=== PATIENT | female | born 1945 | race Hispanic/Latino ===

== ENCOUNTER 2016-09-04 16:23 | Inpatient (IN) | payer MEDICARE, OTHER ==
[2016-09-04 16:24] VITALS: BMI 30.2
[2016-09-04 18:30] LABS: BASO # 0.1 K/uL (0.0-0.2); BASO % 0.6 % (0.0-2.0); EOS # 0.2 K/uL (0.0-0.7); EOS % 1.4 % (0.0-4.0); HEMATOCRIT 36.1 % (34.0-47.0); LYMPH % 16.8 % (20.0-40.0); MEAN CELL VOLUME 88.2 fl (81.0-99.0); MEAN CORPUSCULAR HEMOGLOBIN 28.5 pg (27.0-31.0); MEAN CORPUSCULAR HGB CONC 32.3 g/dL (33.0-37.0); MEAN PLATELET VOLUME 8.1 fl (7.2-11.7); MONO % 8.6 % (0.0-10.0); NEUT # 8.6 K/uL (1.8-7.0); NEUT % 72.6 % (50.0-75.0); RED CELL DISTRIBUTION WIDTH 16.3 % (11.5-14.5); WHITE BLOOD COUNT 11.9 K/uL (4.8-10.8)
[2016-09-04 18:39] LABS: ALB/GLOB RATIO 1.3 (1.0-2.1); ALKALINE PHOSPHATASE 135 U/L (38-126); ALT/SGPT 46 U/L (9-52); AST/SGOT 56 U/L (14-36); BILIRUBIN,TOTAL 0.9 mg/dl (0.2-1.3); BLOOD UREA NITROGEN 20 mg/dl (7-17); CARBON DIOXIDE 22 mmol/L (22-30); CHLORIDE 106 mmol/L (98-107); GFR AFRICAN-AMERICAN > 60; GLUCOSE,RANDOM 84 mg/dL (65-105); SODIUM 144 mmol/l (132-148); TOTAL PROTEIN 7.8 G/DL (6.3-8.2)
[2016-09-04 18:40] LABS: PARTIAL THROMBOPLASTIN TIME 23.8 SECONDS (23.3-32.5)
[2016-09-04 18:41] LABS: POTASSIUM 4.1 MMOL/L (3.6-5.0)
--- NOTE | 2016-09-04 18:54 | CT ---
PROCEDURE: CT HEAD WITHOUT CONTRAST. HISTORY: syncope COMPARISON: Noncontrast head CT performed 11/02/13 TECHNIQUE: Axial computed tomography images were obtained through the head/brain without intravenous contrast. Radiation dose: Total exam DLP = 777.57 mGy-cm. This CT exam was performed using one or more of the following dose reduction techniques: Automated exposure control, adjustment of the mA and/or kV according to patient size, and/or use of iterative reconstruction technique. FINDINGS: HEMORRHAGE: No intracranial hemorrhage. BRAIN: Mild diffuse atrophy with prominence of the ventricles and sulci noted. No mass effect or edema. Mild scattered white matter hypodensities, which are nonspecific, but often seen with chronic microvascular ischemic disease. Please note that MRI with diffusion imaging is more sensitive in the detection of acute ischemic event. VENTRICLES: No hydrocephalus. CALVARIUM: Unremarkable. PARANASAL SINUSES: Unremarkable as visualized. No significant inflammatory changes. MASTOID AIR CELLS: The right mastoid air cells appear clear. Postoperative changes of the left mastoid air cells. OTHER FINDINGS: None. IMPRESSION: No acute intracranial pathology identified. Incidental findings as above.
[2016-09-04 19:16] LABS: RBC URINE 8 /hpf (0-3); URINE BACTERIA RARE (<OCC); URINE BILIRUBIN NEGATIVE (NEGATIVE); URINE BLOOD SMALL (NEGATIVE); URINE COLOR YELLOW (YELLOW); URINE GLUCOSE (UA) NEG (Normal); URINE KETONE TRACE mg/dL (NEGATIVE); URINE LEUKOCYTE ESTERASE LARGE Leu/uL (Negative); URINE PROTEIN 30 mg/dL (NEGATIVE); URINE UROBILINOGEN 0.2-1.0 mg/dL (0.2-1.0); WBC URINE 6 /hpf (0-5)
--- NOTE | 2016-09-04 20:05 | ED PDOC ---
Syncope/Near Syncope/Dizzyness Time Seen by Provider: 09/04/16 17:21 Chief Complaint (Nursing): Dizziness/Lightheaded Chief Complaint (Provider): Syncope History Per: Patient History/Exam Limitations: no limitations Onset/Duration Of Symptoms: Sudden Onset Past Medical History Vital Signs: Last Vital Signs Temp 97.0 F L 09/04/16 16:48 Pulse 78 09/04/16 16:48 Resp 16 09/04/16 16:48 BP 152/109 H 09/04/16 16:48 Pulse Ox 99 09/04/16 16:48 - Medical History PMH: Anxiety, Asthma, COPD, Depression, Diabetes, Diverticulitis, Gastritis, HTN , Pulmonary Embolism, Schizophrenia - Surgical History Surgical History: Appendectomy, Cholecystectomy - Family History Family History: States: Unknown Family Hx - Immunization History Hx Tetanus Toxoid Vaccination: Yes Hx Influenza Vaccination: Yes Hx Pneumococcal Vaccination: Yes - Home Medications Home Medications: Ambulatory Orders Medication Instructions Recorded Docusate [Colace] 100 mg PO BID PRN #0 cap 04/21/16 Enoxaparin [Lovenox] 40 mg SC DAILY #0 syr 04/21/16 Pantoprazole [Protonix EC Tab] 40 mg PO DAILY #0 ect 04/21/16 amLODIPine [Norvasc] 5 mg PO DAILY #0 tab 04/21/16 clonazePAM [Klonopin] 0.5 mg PO BID #0 tab 04/21/16 oxyCODONE/Acetaminophen [Percocet 1 tab PO Q4 PRN #0 tab 04/21/16 5/325 mg Tab] - Allergies Allergies/Adverse Reactions: Allergies Allergy/AdvReac Type Severity Reaction Status Date / Time Penicillins Allergy RASH Verified 04/18/16 07:21 - Laboratory Results Result Diagrams: 09/04/16 17:50 09/04/16 17:50 - ECG O2 Sat by Pulse Oximetry: 99 Medical Decision Making Medical Decision Making: Discussed with Dr. Ross for admission. Disposition - Clinical Impression Clinical Impression: Syncope - Patient ED Disposition Is Patient to be Admitted: Yes - Disposition Disposition Time: 20:05 Condition: STABLE - Pt Status Changed To: Hospital Disposition Of: Observation - Admit Certification Admit to Inpatient:: Telemetry - POA Present On Arrival: None
--- NOTE | 2016-09-04 20:09 | CP.PCM.HP ---
History of Present Illness - History of Present Illness History of Present Illness: 70 yo female with history of HTN, DM2, COPD, Schizophrenia, Depression and PE in the past passed out while walking back home from the pharmacy. She claimed she felt dizzy and nauseated prior to losing consciousness. She denied SOB or chest pain. Present on Admission - Present on Admission Any Indicators Present on Admission: Yes History of DVT/PE: Yes History of Uncontrolled Diabetes: No Urinary Catheter: No Decubitus Ulcer Present: No Review of Systems - Review of Systems All systems: reviewed and no additional remarkable complaints except (aside from those mentioned above, 12 point system review were negative by me) - Hematologic/Lymphatic Additional comments: aside from those mentioned above, 12 point system review were negative by me Past Patient History - Past Social History Smoking Status: Never Smoked Alcohol: None Drugs: Denies - CARDIAC Hx Hypertension: Yes - PULMONARY Hx Asthma: Yes Hx Chronic Obstructive Pulmonary Disease (COPD): Yes Hx Pulmonary Embolism: Yes - NEUROLOGICAL Hx Neurological Disorder: No - HEENT Hx HEENT Problems: No - RENAL Hx Chronic Kidney Disease: No - ENDOCRINE/METABOLIC Hx Diabetes Mellitus Type 2: Yes - HEMATOLOGICAL/ONCOLOGICAL Hx Blood Disorders: No - INTEGUMENTARY Hx Dermatological Problems: No - MUSCULOSKELETAL/RHEUMATOLOGICAL Hx Falls: Yes - GASTROINTESTINAL Hx Diverticulitis: Yes Hx Gastritis: Yes - GENITOURINARY/GYNECOLOGICAL Hx Genitourinary Disorders: No - PSYCHIATRIC Hx Anxiety: Yes Hx Depression: Yes Hx Schizophrenia: Yes - SURGICAL HISTORY Hx Appendectomy: Yes Hx Cholecystectomy: Yes - ANESTHESIA Hx Anesthesia: Yes Hx Anesthesia Reactions: No Meds Allergies/Adverse Reactions: Allergies Allergy/AdvReac Type Severity Reaction Status Date / Time Penicillins Allergy RASH Verified 04/18/16 07:21 Physical Exam - Constitutional Appears: No Acute Distress - Head Exam Additional comments: contussion abrasion left infra-orbital; swollen with small abrasion on left side of the nose - Eye Exam Pupil Exam: PERRL - ENT Exam ENT Exam: Mucous Membranes Moist - Neck Exam Neck exam: Negative for: Meningismus - Respiratory Exam Respiratory Exam: absent: Rhonchi, Wheezes, Respiratory Distress - Cardiovascular Exam Cardiovascular Exam: REGULAR RHYTHM, +S1, +S2 - GI/Abdominal Exam GI & Abdominal Exam: Soft. absent: Tenderness - Rectal Exam Rectal Exam: Deferred - Neurological Exam Neurological exam: Alert, Oriented x3 - Psychiatric Exam Psychiatric exam: Normal Affect, Normal Mood - Skin Skin Exam: Dry, Intact Results - Vital Signs Recent Vital Signs: Last Vital Signs Temp 97.0 F L 09/04/16 16:48 Pulse 78 09/04/16 16:48 Resp 16 09/04/16 16:48 BP 152/109 H 09/04/16 16:48 Pulse Ox 99 09/04/16 20:06 - Labs Result Diagrams: 09/04/16 17:50 09/04/16 17:50 Labs: Laboratory Results - last 24 hr 09/04/16 09/04/16 17:50 18:20 WBC 11.9 H RBC 4.09 Hgb 11.7 L Hct 36.1 MCV 88.2 MCH 28.5 MCHC 32.3 L RDW 16.3 H Plt Count 252 MPV 8.1 Neut % (Auto) 72.6 Lymph % (Auto) 16.8 L [place] % (Auto) 8.6 Eos % (Auto) 1.4 Baso % (Auto) 0.6 Neut # 8.6 H Lymph # 2.0 Dale # 1.0 H Eos # 0.2 Baso # 0.1 PT 10.1 INR 0.97 APTT 23.8 Sodium 144 Potassium 4.1 Chloride 106 Carbon Dioxide 22 Anion Gap 20 BUN 20 H Creatinine 0.8 Est GFR ( Amer) > 60 Est GFR (Non-Af Amer) > 60 Random Glucose 84 Calcium 9.0 Total Bilirubin 0.9 AST 56 H D ALT 46 Alkaline Phosphatase 135 H D Troponin I < 0.0120 Total Protein 7.8 Albumin 4.5 Globulin 3.3 Albumin/Globulin Ratio 1.3 Urine Color Yellow Urine Clarity Slighty-cloudy Urine pH 5.0 Ur Specific [place] 1.026 Urine Protein 30 Urine Glucose (UA) Neg Urine Ketones Trace Urine Blood Small Urine Nitrate Negative Urine Bilirubin Negative Urine Urobilinogen 0.2-1.0 Ur Leukocyte Esterase Large Urine RBC (Auto) 8 H Urine Microscopic WBC 6 H Ur Squamous Epith Cells < 1 Urine Bacteria Rare Assessment & Plan (1) Syncope Status: Acute Comment: place on observation in telemetry. serial Troponin and EKG. ECHO. Carotid doppler. Neuro consult (patient admitted history of multiple falls). refer to PT
[2016-09-04] MEDS ORDERED: Oxycodone/Acetaminophen 5/325 mg Tab PO PRN (23:36)
[2016-09-05 07:11] LABS: BASO # 0.1 K/uL (0.0-0.2); EOS # 0.2 K/uL (0.0-0.7); EOS % 1.9 % (0.0-4.0); HEMATOCRIT 35.3 % (34.0-47.0); LYMPH # 2.1 K/uL (1.0-4.3); LYMPH % 21.3 % (20.0-40.0); MEAN CELL VOLUME 87.8 fl (81.0-99.0); MEAN CORPUSCULAR HEMOGLOBIN 28.4 pg (27.0-31.0); MEAN CORPUSCULAR HGB CONC 32.3 g/dL (33.0-37.0); MEAN PLATELET VOLUME 7.8 fl (7.2-11.7); MONO # 0.9 K/uL (0.0-0.8); MONO % 9.3 % (0.0-10.0); NEUT # 6.6 K/uL (1.8-7.0); NEUT % 66.5 % (50.0-75.0)
[2016-09-05 07:19] LABS: BLOOD UREA NITROGEN 20 mg/dl (7-17); CALCIUM 8.9 mg/dL (8.4-10.2); CARBON DIOXIDE 25 mmol/L (22-30); CHLORIDE 107 mmol/L (98-107); GFR AFRICAN-AMERICAN > 60; GLUCOSE,RANDOM 102 mg/dL (65-105); POTASSIUM 3.5 MMOL/L (3.6-5.0); SODIUM 146 mmol/l (132-148)
[2016-09-05] MEDS ORDERED: Potassium Chloride 20 mEq ER Tab PO ONE (07:55)
[2016-09-05] MEDS: Pantoprazole 40 mg EC Tab PO SCH (08:56)
--- NOTE | 2016-09-05 09:58 | RAD ---
HISTORY: syncope COMPARISON: 04/07/2016 FINDINGS: LUNGS: The lungs are well inflated and clear. PLEURA: No significant pleural effusion identified, no pneumothorax apparent. CARDIOVASCULAR: Normal. OSSEOUS STRUCTURES: No significant abnormalities. Status post ACDF in the lower cervical spine. VISUALIZED UPPER ABDOMEN: Normal. OTHER FINDINGS: None. IMPRESSION: No active pulmonary disease.
--- NOTE | 2016-09-05 11:37 | CARD ---
APPROVED REPORT EXAM: Two-dimensional and M-mode echocardiogram with Doppler and color Doppler. Other Information Quality : AverageRhythm : NSR INDICATION Syncope 2D DIMENSIONS IVSd0.94 (0.7-1.1cm)LVDd3.13 (3.9-5.9cm) LVOT Diameter2.08 (1.8-2.4cm)PWd0.98 (0.7-1.1cm) IVSs1.44 (0.8-1.2cm)LVDs2.70 (2.5-4.0cm) FS (%) 13.8 %PWs1.19 (0.8-1.2cm) M-Mode DIMENSIONS Left Atrium (MM)3.67 (2.5-4.0cm)Aortic Root2.91 (2.2-3.7cm) Aortic Cusp Exc.1.85 (1.5-2.0cm) Mitral Valve MV E Mvhvfqec96.2cm/sMV DECEL [id number] A Mewcbhzs36.2cm/s MV HLE15yoD/A ratio1.0MVA (PHT)3.77cm2 TDI E/Lateral E'0.0E/Medial E'0.0 Pulmonary Valve PV Peak Zcxfrbye02.4cm/s LEFT VENTRICLE The left ventricle is normal size. There is normal left ventricular wall thickness. The left ventricular function is normal. The left ventricular ejection fraction is - 75%. There is normal LV segmental wall motion. Transmitral Doppler flow pattern is Grade I-abnormal relaxation pattern. No left ventricle thrombus noted on this study. There is no ventricular septal defect visualized. There is no left ventricular aneurysm. There is no mass noted in the left ventricle. RIGHT VENTRICLE The right ventricle is normal size. There is normal right ventricular wall thickness. The right ventricular systolic function is normal. ATRIA The left atrium size is normal. There is no thrombus suspected in the left atrium. The right atrium size is normal. The interatrial septum is intact with no evidence for an atrial septal defect. AORTIC VALVE The aortic valve is normal in structure and function. There is very trivial aortic regurgitation. There is no aortic valvular stenosis. MITRAL VALVE The mitral valve is normal in structure and function. There is no evidence of mitral valve prolapse. There is no mitral valve stenosis. Mitral regurgitation is trace. TRICUSPID VALVE The tricuspid valve is normal in structure and function. There is no tricuspid valve regurgitation noted. There is no tricuspid valve prolapse or vegetation. There is no tricuspid valve stenosis. PULMONIC VALVE The pulmonary valve is normal in structure and function. There is trace pulmonic valvular regurgitation. GREAT VESSELS The aortic root is normal in size. The IVC was not visualized. PERICARDIAL EFFUSION There is a very small anterior echo free space. There is no pleural effusion. <Conclusion> The left ventricle is normal in size and wall thickness. The left ventricular function is normal. The left ventricular ejection fraction is - 75%. The left atrium, right ventricle and right atrium are normal in size. The mitral, aortic and tricuspid valves are normal. There is trace mitral regurgitation and trivial aortic regurgitation.
--- NOTE | 2016-09-05 15:18 | US ---
PROCEDURE: Duplex ultrasound of the carotid and vertebral arteries. HISTORY: syncope COMPARISON: None available. TECHNIQUE: Grayscale and duplex Doppler evaluation of the cervical carotid and vertebral arteries were performed. The common carotid, carotid bifurcations and cervical ICA and proximal ECA were evaluated. The vertebral arteries were evaluated for gross patency and direction. FINDINGS: RIGHT CAROTID ARTERIES: Common Carotid Artery: Normal. Maximal flow velocity of 62.5 cm/s. Carotid Bifurcation: Normal. Internal Carotid Artery:Normal. Maximal flow velocity of 58.1 cm/s. External Carotid Artery (proximal branches): Normal. Maximal flow velocity of 69.1 cm/s. ICA/CCA Ratio: 1.1 LEFT CAROTID ARTERIES: Common Carotid Artery: Normal. Maximal flow velocity of 79.0 cm/s. Carotid Bifurcation: There are calcified atherosclerotic plaques. Normal flow. Internal Carotid Artery:Normal. Maximal flow velocity of 58.3 cm/s. External Carotid Artery (proximal branches): Normal. Maximal flow velocity of 61.1 cm/s. ICA/CCA Ratio: 1.4 VERTEBRAL ARTERIES: Right Vertebral Artery: Patent. Antegrade flow. Left Vertebral Artery: Patent. Antegrade flow. OTHER FINDINGS: None. IMPRESSION: No evidence of hemodynamically significant stenosis.
--- NOTE | 2016-09-05 18:03 | CP.PCM.PN ---
Subjective - Date & Time of Evaluation Date of Evaluation: 09/05/16 Time of Evaluation: 11:00 - Subjective Subjective: Pt seen and examined denies headace, no dizziness no orthostas on VS monitoring denies CP no SOB no abd pain able to ambulate- denies hip pain, no back pain, no UE pain Objective - Vital Signs/Intake and Output Vital Signs (last 24 hours): Temp Pulse Resp BP Pulse Ox 97.9 F 72 18 111/73 97 09/05/16 17:00 09/05/16 17:00 09/05/16 17:00 09/05/16 17:00 09/05/16 17:00 - Medications Medications: Current Medications Acetaminophen (Tylenol 325mg Tab) 650 mg PO Q6 PRN PRN Reason: Pain, Mild (1-3) Amlodipine Besylate (Norvasc) 5 mg PO DAILY [facility] Last Admin: 09/05/16 08:56 Dose: 5 mg Clonazepam (Klonopin) 0.5 mg PO BID [facility] Last Admin: 09/05/16 08:56 Dose: 0.5 mg Oxycodone/Acetaminophen (Percocet 5/325 Mg Tab) 1 tab PO Q4 PRN PRN Reason: Pain, moderate (4-7) Stop: 09/07/16 23:37 Last Admin: 09/04/16 23:55 Dose: 1 tab Pantoprazole Sodium (Protonix Ec Tab) 40 mg PO DAILY [facility] Last Admin: 09/05/16 08:56 Dose: 40 mg - Labs Labs: 09/05/16 05:55 09/05/16 05:55 PT 10.1 SECONDS (9.6-11.2) 09/04/16 17:50 INR 0.97 (0.92-1.08) 09/04/16 17:50 APTT 23.8 SECONDS (23.3-32.5) 09/04/16 17:50 - Constitutional Appears: No Acute Distress, Older Than Stated Age, Chronically Ill - Head Exam Additional comments: left periorbital abrasion, minimal swelling - ENT Exam ENT Exam: Mucous Membranes Moist, Normal External Ear Exam - Neck Exam Neck Exam: Full ROM. absent: Meningismus - Respiratory Exam Respiratory Exam: NORMAL BREATHING PATTERN. absent: Respiratory Distress - Cardiovascular Exam Cardiovascular Exam: REGULAR RHYTHM, +S1, +S2 - GI/Abdominal Exam GI & Abdominal Exam: Soft, Normal Bowel Sounds. absent: Tenderness - Extremities Exam Extremities Exam: Normal Capillary Refill. absent: Calf Tenderness, Pedal Edema - Back Exam Back Exam: Full ROM. absent: CVA tenderness (L), CVA tenderness (R), paraspinal tenderness, vertebral tenderness - Neurological Exam Neurological Exam: Alert, Awake, CN II-XII Intact, Oriented x3 - Psychiatric Exam Psychiatric exam: Normal Affect, Normal Mood - Skin Skin Exam: Dry, Normal Color, Warm Assessment and Plan (1) Syncope Status: Acute (2) UTI (lower urinary tract infection) Status: Acute (3) Asthma Status: Chronic (4) Schizophrenia Status: Chronic (5) HTN (hypertension) Status: Chronic (6) History of pulmonary embolus (PE) Status: Chronic (7) DVT prophylaxis Status: Acute - Assessment and Plan (Free Text) Assessment: 70 y/o lady with hx of HTN, Schizophremia, VTE (hx of IVC filter), Asthma , was brought in after a syncopal episode. Pt states that she felt dizzy prior to the event and passed out however was able to hold on to something and only sl injured her head. (1) Syncope prob sec to medications Status: Acute unclear what other Psych meds she takes however she is knwon to be on Klonopin and also takes Percocet prn no Ortho statis change in VS CT of head: neg Echo ; normal EF Carotid Sono: no significant stenosis Trop x 3 negative no signs sxs of PE ( no tachy, no resp sxs ) Neurology on consult EKG: normal, no abn rhythm on Tele Physical therapy consult (2) UTI (lower urinary tract infection) Status: Acute very sl WBC, however + leukoest Urine c/s will start PO Levaquin (3) Asthma mild intermitent Status: Chronic prn Albuterol (4) Schizophrenia Status: Chronic pt on Klonopin unlknown other Psych meds SW consulted to have Visiting RN come and eval pt's meds - she is taking correctly (5) HTN (hypertension) Status: Chronic cont Norvasc (6) History of pulmonary embolus (PE) Status: Chronic hx of IVC filter accdg to previous med records (7) DVT prophylaxis Status: Acute Lovenox
--- NOTE | 2016-09-05 18:37 | CP.PCM.CON ---
History of Present Illness - History of Present Illness History of Present Illness: Chief Complaint: Syncope, Dizziness/Lightheadedness History Per: Patient History/Exam Limitations: no limitations Onset/Duration Of Symptoms: Sudden Onset Past Medical History Vital Signs: Last Vital Signs Temp 97.0 F L 09/04/16 16:48 Pulse 78 09/04/16 16:48 Resp 16 09/04/16 16:48 BP 152/109 H 09/04/16 16:48 Pulse Ox 99 09/04/16 16:48 - Medical History PMH: Anxiety, Asthma, COPD, Depression, Diabetes, Diverticulitis, Gastritis, HTN , Pulmonary Embolism, Schizophrenia, H/o Glaucoma, H/O Lumbar Radiculopathy that was operated twice, uses a Quadricane to walk and at times uses a walker. Frequent falling due to back pain, H/O Sleep Apnea but she lost her CPAP Machine. - Surgical History Surgical History: Appendectomy, Cholecystectomy, H/o Left shoulder surgery, h/o surgery for Diverticulosis, h/o 2 Back Surgeries - Family History Family History: States: Unknown Family Hx - Immunization History Hx Tetanus Toxoid Vaccination: Yes Hx Influenza Vaccination: Yes Hx Pneumococcal Vaccination: Yes - Home Medications Home Medications: Ambulatory Orders Medication Instructions Recorded Docusate [Colace] 100 mg PO BID PRN #0 cap 04/21/16 Enoxaparin [Lovenox] 40 mg SC DAILY #0 syr 04/21/16 Pantoprazole [Protonix EC Tab] 40 mg PO DAILY #0 ect 04/21/16 amLODIPine [Norvasc] 5 mg PO DAILY #0 tab 04/21/16 clonazePAM [Klonopin] 0.5 mg PO BID #0 tab 04/21/16 oxyCODONE/Acetaminophen [Percocet 1 tab PO Q4 PRN #0 tab 04/21/16 5/325 mg Tab] - Allergies Allergies/Adverse Reactions: Allergies Allergy/AdvReac Type Severity Reaction Status Date / Time Penicillins Allergy RASH Verified 04/18/16 07:21 Clinical Impression: Syncope IMPRESSION of CT Brain: No acute intracranial pathology identified. Mild scattered white matter hypodensities, which are nonspecific, but often seen with chronic microvascular ischemic disease. Incidental findings as above. IMPRESSION of Carotid Dopplers: No evidence of hemodynamically significant stenosis. IMPRESSION of CXR: No active pulmonary disease. Past Patient History - Past Medical History & Family History Past Medical History?: Yes - Past Social History Smoking Status: Never Smoked Alcohol: None Drugs: Denies - CARDIAC Hx Hypertension: Yes - PULMONARY Hx Asthma: Yes Hx Chronic Obstructive Pulmonary Disease (COPD): Yes Hx Pulmonary Embolism: Yes - NEUROLOGICAL Hx Dizziness: Yes - HEENT Hx HEENT Problems: No - RENAL Hx Chronic Kidney Disease: No - ENDOCRINE/METABOLIC Hx Diabetes Mellitus Type 2: Yes - HEMATOLOGICAL/ONCOLOGICAL Hx Blood Disorders: No - INTEGUMENTARY Hx Dermatological Problems: No - MUSCULOSKELETAL/RHEUMATOLOGICAL Hx Falls: Yes Other/Comment: Left shoulder Sx, 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 - GASTROINTESTINAL Hx Diverticulitis: Yes Hx Gastritis: Yes - GENITOURINARY/GYNECOLOGICAL Hx Genitourinary Disorders: No - PSYCHIATRIC Hx Anxiety: Yes Hx Depression: Yes Hx Schizophrenia: Yes - SURGICAL HISTORY Hx Appendectomy: Yes Hx Cholecystectomy: Yes - ANESTHESIA Hx Anesthesia: Yes Hx Anesthesia Reactions: No Meds Allergies/Adverse Reactions: Allergies Allergy/AdvReac Type Severity Reaction Status Date / Time Penicillins Allergy RASH Verified 04/18/16 07:21 - Medications Medications: Current Medications Acetaminophen (Tylenol 325mg Tab) 650 mg PO Q6 PRN PRN Reason: Pain, Mild (1-3) Amlodipine Besylate (Norvasc) 5 mg PO DAILY [facility] Last Admin: 09/05/16 08:56 Dose: 5 mg Clonazepam (Klonopin) 0.5 mg PO BID [facility] Last Admin: 09/05/16 08:56 Dose: 0.5 mg Enoxaparin Sodium (Lovenox) 40 mg SC DAILY [facility] PRN Reason: Protocol Levofloxacin (Levaquin) 250 mg PO STAT STA Stop: 09/05/16 18:10 Levofloxacin (Levaquin) 250 mg PO DAILY [facility] Oxycodone/Acetaminophen (Percocet 5/325 Mg Tab) 1 tab PO Q4 PRN PRN Reason: Pain, moderate (4-7) Stop: 09/07/16 23:37 Last Admin: 09/04/16 23:55 Dose: 1 tab Pantoprazole Sodium (Protonix Ec Tab) 40 mg PO DAILY [facility] Last Admin: 09/05/16 08:56 Dose: 40 mg Physical Exam - Neurological Exam Additional comments: Bruise around her nose Mental Status: Awake, alert, oriented x 3, normal cognition, normal memoryX 3 Speech is fluent coherent. Cranial nerves II to XII: No deficits Motor: normal Tone normal power. Positive Lasegue test bilaterally Limited left shoulder abduction, raising the shoulder. DTR 0/4 bilaterally Toes are down going Sensory: Glove and stoke diabetic sensory deficit peripherally in bilateral UEs and LEs Cerebellar: Normal FNT The rest is not tested as she cannot stand or walk easily. Stature and Walk: Walks to the bathroom slowly, cruising on the schuster and the funiture. Results - Vital Signs Recent Vital Signs: Last Vital Signs Temp 97.9 F 09/05/16 17:00 Pulse 72 09/05/16 17:00 Resp 18 09/05/16 17:00 BP 111/73 09/05/16 17:00 Pulse Ox 97 09/05/16 17:00 - Labs Result Diagrams: 09/05/16 05:55 09/05/16 05:55 Labs: Laboratory Results - last 24 hr 09/04/16 09/05/16 09/05/16 21:31 01:15 05:20 WBC RBC Hgb Hct MCV MCH MCHC RDW Plt Count MPV Neut % (Auto) Lymph % (Auto) Kay % (Auto) Eos % (Auto) Baso % (Auto) Neut # Lymph # Kay # Eos # Baso # Sodium Potassium Chloride Carbon Dioxide Anion Gap BUN Creatinine Est GFR ( Amer) Est GFR (Non-Af Amer) POC Glucose (mg/dL) 90 111 H Random Glucose Hemoglobin A1c Calcium Troponin I < 0.0120 09/05/16 09/05/16 09/05/16 05:55 10:15 11:05 WBC 10.0 RBC 4.02 Hgb 11.4 L Hct 35.3 MCV 87.8 MCH 28.4 MCHC 32.3 L RDW 16.0 H Plt Count 236 MPV 7.8 Neut % (Auto) 66.5 Lymph % (Auto) 21.3 Kay % (Auto) 9.3 Eos % (Auto) 1.9 Baso % (Auto) 1.0 Neut # 6.6 Lymph # 2.1 Kay # 0.9 H Eos # 0.2 Baso # 0.1 Sodium 146 Potassium 3.5 L Chloride 107 Carbon Dioxide 25 Anion Gap 18 BUN 20 H Creatinine 0.9 Est GFR ( Amer) > 60 Est GFR (Non-Af Amer) > 60 POC Glucose (mg/dL) 110 Random Glucose 102 Hemoglobin A1c 6.0 Calcium 8.9 Troponin I < 0.0120 < 0.0120 09/05/16 15:51 WBC RBC Hgb Hct MCV MCH MCHC RDW Plt Count MPV Neut % (Auto) Lymph % (Auto) Kay % (Auto) Eos % (Auto) Baso % (Auto) Neut # Lymph # Kay # Eos # Baso # Sodium Potassium Chloride Carbon Dioxide Anion Gap BUN Creatinine Est GFR ( Amer) Est GFR (Non-Af Amer) POC Glucose (mg/dL) 146 H Random Glucose Hemoglobin A1c Calcium Troponin I Assessment & Plan (1) Syncope Assessment and Plan: H/O HTN, UTI, COPD, Schizophrenia, Abdominal Pain, Pulmonary Embolism, R/O Cardiac causes of Syncope. She has a nasal bruise. Status: Acute (2) Flu-like symptoms Assessment and Plan: H/O Abdominal Pain, Diarrhea, Possible UTI Status: Acute (3) Vertigo Assessment and Plan: R/O Seizures, R/O Cervical Radiculopathy, R/O Meniere's disease, H/O Anxiety , Sleep Apnea who lost her CPAP, Schizophrenia. Status: Acute (4) Seizures Assessment and Plan: Have to be ruled out Status: Acute (5) TIA (transient ischemic attack) Assessment and Plan: R/O TIA Status: Acute (6) Lumbar radiculopathy Assessment and Plan: Operated twice. Status: Acute (7) Sleep apnea Assessment and Plan: Stopped using her CPAP and feels tired. She needs a sleep study and to have titration for her CPAP Status: Acute
--- NOTE | 2016-09-05 20:09 | CARD ---
APPROVED REPORT EKG Measurement Heart [id number] <Conclusion> Normal sinus rhythm Normal ECG
[2016-09-06 07:25] LABS: THYROID STIMULATING HORMONE 0.87 mIU/ML (0.46-4.68)
[2016-09-06 08:03] VITALS: RESP 18
[2016-09-06] MEDS ORDERED: Enoxaparin 40 mg Syringe SC SCH (09:00)
--- NOTE | 2016-09-06 09:09 | CP.PCM.DIS ---
Provider - Provider Date of Admission: 09/05/16 19:20 Attending physician: Harry Ross MD Primary care physician: Balta Bergman MD Consults: Neurology consult Time Spent in preparation of Discharge (in minutes): 15 Hospital Course - Lab Results Lab Results: Most Recent Lab Values WBC 10.0 K/uL (4.8-10.8) 09/05/16 05:55 RBC 4.02 Mil/uL (3.80-5.20) 09/05/16 05:55 Hgb 11.4 g/dL (12.0-16.0) L 09/05/16 05:55 Hct 35.3 % (34.0-47.0) 09/05/16 05:55 MCV 87.8 fl (81.0-99.0) 09/05/16 05:55 MCH 28.4 pg (27.0-31.0) 09/05/16 05:55 MCHC 32.3 g/dL (33.0-37.0) L 09/05/16 05:55 RDW 16.0 % (11.5-14.5) H 09/05/16 05:55 Plt Count 236 K/uL (130-400) 09/05/16 05:55 MPV 7.8 fl (7.2-11.7) 09/05/16 05:55 Neut % (Auto) 66.5 % (50.0-75.0) 09/05/16 05:55 Lymph % (Auto) 21.3 % (20.0-40.0) 09/05/16 05:55 Polk % (Auto) 9.3 % (0.0-10.0) 09/05/16 05:55 Eos % (Auto) 1.9 % (0.0-4.0) 09/05/16 05:55 Baso % (Auto) 1.0 % (0.0-2.0) 09/05/16 05:55 Neut # 6.6 K/uL (1.8-7.0) 09/05/16 05:55 Lymph # 2.1 K/uL (1.0-4.3) 09/05/16 05:55 Polk # 0.9 K/uL (0.0-0.8) H 09/05/16 05:55 Eos # 0.2 K/uL (0.0-0.7) 09/05/16 05:55 Baso # 0.1 K/uL (0.0-0.2) 09/05/16 05:55 ESR 34 mm/hr (0-30) H 09/06/16 05:00 PT 10.1 SECONDS (9.6-11.2) 09/04/16 17:50 INR 0.97 (0.92-1.08) 09/04/16 17:50 APTT 23.8 SECONDS (23.3-32.5) 09/04/16 17:50 Sodium 146 mmol/l (132-148) 09/05/16 05:55 Potassium 3.5 MMOL/L (3.6-5.0) L 09/05/16 05:55 Chloride 107 mmol/L (98-107) 09/05/16 05:55 Carbon Dioxide 25 mmol/L (22-30) 09/05/16 05:55 Anion Gap 18 (10-20) 09/05/16 05:55 BUN 20 mg/dl (7-17) H 09/05/16 05:55 Creatinine 0.9 mg/dL (0.7-1.2) 09/05/16 05:55 Est GFR ( Amer) > 60 09/05/16 05:55 Est GFR (Non-Af Amer) > 60 09/05/16 05:55 POC Glucose (mg/dL) 117 mg/dL (65-110) H 09/06/16 05:19 Random Glucose 102 mg/dL (65-105) 09/05/16 05:55 Hemoglobin A1c 6.0 % (4.2-6.5) 09/05/16 05:55 Calcium 8.9 mg/dL (8.4-10.2) 09/05/16 05:55 Total Bilirubin 0.9 mg/dl (0.2-1.3) 09/04/16 17:50 AST 56 U/L (14-36) H D 09/04/16 17:50 ALT 46 U/L (9-52) 09/04/16 17:50 Alkaline Phosphatase 135 U/L (38-126) H D 09/04/16 17:50 Troponin I < 0.0120 ng/mL (0.00-0.120) 09/05/16 10:15 Total Protein 7.8 G/DL (6.3-8.2) 09/04/16 17:50 Albumin 4.5 g/dL (3.5-5.0) 09/04/16 17:50 Globulin 3.3 gm/dL (2.2-3.9) 09/04/16 17:50 Albumin/Globulin Ratio 1.3 (1.0-2.1) 09/04/16 17:50 Triglycerides 144 mg/DL (0-149) 09/06/16 05:00 Cholesterol 173 mg/dL (0-199) 09/06/16 05:00 LDL Cholesterol Direct 79 mg/dL (0-129) 09/06/16 05:00 HDL Cholesterol 63 MG/DL (30-70) 09/06/16 05:00 TSH 3rd Generation 0.87 mIU/ML (0.46-4.68) 09/06/16 05:00 Urine Color Yellow (YELLOW) 09/04/16 18:20 Urine Clarity Slighty-cloudy (Clear) 09/04/16 18:20 Urine pH 5.0 (5.0-8.0) 09/04/16 18:20 Ur Specific [place] 1.026 (1.003-1.030) 09/04/16 18:20 Urine Protein 30 mg/dL (NEGATIVE) 09/04/16 18:20 Urine Glucose (UA) Neg mg/dL (Normal) 09/04/16 18:20 Urine Ketones Trace mg/dL (NEGATIVE) 09/04/16 18:20 Urine Blood Small (NEGATIVE) 09/04/16 18:20 Urine Nitrate Negative (NEGATIVE) 09/04/16 18:20 Urine Bilirubin Negative (NEGATIVE) 09/04/16 18:20 Urine Urobilinogen 0.2-1.0 mg/dL (0.2-1.0) 09/04/16 18:20 Ur Leukocyte Esterase Large Ally/uL (Negative) 09/04/16 18:20 Urine RBC (Auto) 8 /hpf (0-3) H 09/04/16 18:20 Urine Microscopic WBC 6 /hpf (0-5) H 09/04/16 18:20 Ur Squamous Epith Cells < 1 /hpf (0-5) 04/03/17 18:20 Urine Bacteria Rare (<OCC) 09/04/16 18:20 - Hospital Course Hospital Course: 70 y/o lady with hx of HTN, Schizophremia, VTE (hx of IVC filter), Asthma , was brought in after a syncopal episode. Pt states that she felt dizzy prior to the event and passed out however was able to hold on to something and only sl injured her head.She has an abrasion to the nose and left periorbital echymosis Patient was admitted in telemetry for syncopal episode of unclear etiology. CT head showed no acute findings, ECHo- wnl, carotid doppler showed no stenosis, EKG and tele monitor showed no arrythmias , trop x 3 negative. neurology was consulted and recommended EEG and follow up as out patient. Most likely Syncopal event vasovagal syncopy. Patient at present is hemodynamically stable, afebrile, ambulating. She has walker at home and advised to use it with ambulation. She lives alone and will benefit from home visiting nurse services and home health aid services given her aage and her psychiatric history. will discharge patient home (1) Syncope prob sec to medications -- vasovagal episode Acute unclear what other Psych meds she takes however she is knwon to be on Klonopin and also takes Percocet prn no Ortho statis change in VS CT of head: neg Echo ; normal EF Carotid Sono: no significant stenosis Trop x 3 negative no signs sxs of PE ( no tachy, no resp sxs ) Neurology consulted and case discussed. most likely vasovagal syncopy EKG: normal, no abn rhythm on Tele EEG done. To follow up results as out patient Gait stable, ambulating Follow up with PMD Dr. Bergman in 1 week (2) UTI (lower urinary tract infection)-ruled out Acute very sl WBC, however + leukoest Urine c/s with no growth will d/c Levaquin (3) Asthma mild intermitent Chronic prn Albuterol (4) Schizophrenia Chronic pt on Klonopin unlknown other Psych meds SW consulted to have Visiting RN come and eval pt's meds - she is taking correctly follow up with her psychiatrist (5) HTN (hypertension) Chronic cont Norvasc (6) History of pulmonary embolus (PE) Chronic hx of IVC filter accdg to previous med records (7) DVT prophylaxis Lovenox Discharge Exam - Head Exam Head Exam: NORMOCEPHALIC Additional comments: left periorbital echymosis left tip of the nose abrasion - Eye Exam Eye Exam: EOMI, Normal appearance, PERRL Pupil Exam: NORMAL ACCOMODATION - ENT Exam ENT Exam: Mucous Membranes Moist, Normal Exam - Neck Exam Neck exam: Full Rom, Normal Inspection - Respiratory Exam Respiratory Exam: Clear to PA & Lateral, NORMAL BREATHING PATTERN. absent: Rales, Rhonchi - Cardiovascular Exam Cardiovascular Exam: REGULAR RHYTHM, RRR, +S1, +S2. absent: JVD - GI/Abdominal Exam GI & Abdominal Exam: Normal Bowel Sounds, Soft. absent: Distended, Guarding, Rebound, Tenderness - Rectal Exam Rectal Exam: Deferred - Extremities Exam Extremities exam: normal capillary refill, normal inspection, pedal pulses present - Back Exam Back exam: NORMAL INSPECTION - Neurological Exam Neurological exam: Alert, CN II-XII Intact, Oriented x3, Reflexes Normal - Psychiatric Exam Psychiatric exam: Normal Affect - Skin Skin Exam: Dry, Warm Discharge Plan - Follow Up Plan Condition: STABLE Disposition: HOME/ ROUTINE Patient education suggested?: Yes Instructions: Syncope (DC) Referrals: Balta Bergman MD [Primary Care Provider] -
--- NOTE | 2016-09-06 11:36 | MRI ---
PROCEDURE: MRI BRAIN WITHOUT CONTRAST HISTORY: Head trauma, R/O Seizures, r/o CVA COMPARISON: Noncontrast head CT from 09/04/2016 TECHNIQUE: Multiplanar, multisequence MR images of the brain were obtained without intravenous contrast enhancement. FINDINGS: HEMORRHAGE: None DWI: No evidence of an acute or early subacute infarction. BRAIN PARENCHYMA: There are mild chronic microangiopathic changes. There is no mass, mass effect or abnormal extra-axial fluid collection. The midline sagittal structures are normal. VENTRICLES: There is mild age-related global parenchymal volume loss and proportionate enlargement of the ventricles and cortical sulci. CRANIUM: There is mild hyperostosis frontalis interna. There is normal bone marrow signal pattern. There is mild calvarial thickening. ORBITS: Grossly unremarkable. PARANASAL SINUSES/MASTOIDS: Predominantly clear. VASCULAR SYSTEM: There are normal signal voids in the larger intracranial arteries. OTHER FINDINGS: None. IMPRESSION: No acute intracranial abnormality. Mild chronic microangiopathic changes and mild age-related global parenchymal volume loss.
--- NOTE | 2016-09-06 11:47 | MRI ---
PROCEDURE: MR LUMBAR SPINE WITHOUT CONTRAST HISTORY: Radiculopathy, H/O Back Surgery COMPARISON: None available. TECHNIQUE: Multiecho multiplanar sequences were performed through the lumbar spine without the use of intravenous contrast. FINDINGS: There is normal alignment of the lumbar vertebral bodies. Lumbar lordosis is maintained. Vertebral bodies are normal in height. There is no acute fracture or spondylolisthesis. Status post right hemilaminotomy at L5. Bone marrow signal is within normal limits. The conus medullaris terminates at a normal level and the nerve roots of cauda equina are normal. There is mild fatty atrophy of the paraspinous soft tissues. Image portion of the retroperitoneum is grossly within normal limits. T12-L1: No disc herniation, spinal canal stenosis or neural foraminal narrowing. L1-2: Mild posterior disc bulge. No neural foraminal or spinal canal stenosis. L2-3: No disc herniation, spinal canal stenosis or neural foraminal narrowing. L3-4: Mild posterior disc bulge, moderate ligamentum flavum infolding and mild bilateral facet arthropathy without neural foraminal or spinal canal stenosis. L4-5: Broad-based posterior disc bulge and moderate ligamentum flavum infolding result in mild spinal canal stenosis. Severe bilateral facet arthropathy with facet joint effusions contribute to moderate bilateral neural foraminal stenosis. L5-S1: Status post discectomy. No large disc herniation. Moderate bilateral facet arthropathy contributes to severe bilateral neural foraminal stenosis. No spinal canal stenosis. OTHER FINDINGS: None. IMPRESSION: 1. No acute fracture or spondylolisthesis. 2. Mild multilevel degenerative disc disease, worse at L4-5 with a broad-based posterior disc bulge, mild spinal canal stenosis and moderate neural foraminal stenosis. 3. Status post right hemilaminotomy at L5-S1, no large disc herniation or spinal canal stenosis. Severe bilateral neural foraminal stenosis.
[2016-09-06] MEDS: Pantoprazole 40 mg EC Tab PO SCH (12:03)
[2016-09-06 16:14] VITALS: BP 111/71; PULSE 69; TEMP 98.1; O2SAT 95
== END 2016-09-06 16:15 | disposition home or self-care (01) | DRG 312 ==
LOC: H.ER 16:23 → H.ERHOLD 19:48 → H.TEL 21:26 → OBSVTOIN 09-05 19:20
DX: R55 Syncope and collapse (principal); J44.9 Chronic obstructive pulmonary disease, unspecified; E11.9 Type 2 diabetes mellitus without complications; F20.9 Schizophrenia, unspecified; T50.905A Adverse effect of unspecified drugs, medicaments and biological substances, initial encounter; G47.30 Sleep apnea, unspecified; I10 Essential (primary) hypertension; J45.20 Mild intermittent asthma, uncomplicated; Z86.711 Personal history of pulmonary embolism; M54.16 Radiculopathy, lumbar region; F41.9 Anxiety disorder, unspecified; Z88.0 Allergy status to penicillin; S00.31XA Abrasion of nose, initial encounter; X58.XXXA Exposure to other specified factors, initial encounter; K29.70 Gastritis, unspecified, without bleeding; F32.9 Major depressive disorder, single episode, unspecified; S00.83XA Contusion of other part of head, initial encounter

== ENCOUNTER 2017-10-19 10:29 | Emergency (ER) | payer MEDICARE, MEDICAID ==
[2017-10-19 10:33] VITALS: BMI 32.3
[2017-10-19 10:34] VITALS: TEMP 98
[2017-10-19 11:47] LABS: BASO # 0.1 K/uL (0.0-0.2); BASO % 1.1 % (0.0-2.0); EOS # 0.2 K/uL (0.0-0.7); EOS % 2.5 % (0.0-4.0); HEMOGLOBIN 13.2 g/dL (12.0-16.0); LYMPH % 21.6 % (20.0-40.0); MEAN CELL VOLUME 88.4 fl (81.0-99.0); MONO # 1.3 K/uL (0.0-0.8); MONO % 14.3 % (0.0-10.0); NEUT # 5.5 K/uL (1.8-7.0); NEUT % 60.5 % (50.0-75.0); NRBC % 0.3 % (0.0-0.0); RBC 4.39 Mil/uL (3.80-5.20); RED CELL DISTRIBUTION WIDTH 14.2 % (11.5-14.5); WHITE BLOOD COUNT 9.1 K/uL (4.8-10.8)
--- NOTE | 2017-10-19 11:59 | ED PDOC ---
HPI: General Adult Time Seen by Provider: 10/19/17 10:43 Chief Complaint (Nursing): Headache Chief Complaint (Provider): Headache History Per: Patient History/Exam Limitations: no limitations Onset/Duration Of Symptoms: Days (10/19/17) Additional History Per: Patient Additional Complaint(s): 72 year old female with a history of hypertension and diabetes presents to the ED complaining of not feeling well. States she saw his primary physician who said she has high blood pressure and referred her to the ED. Reports she has not taken her blood pressure medication in the past two days because she ran out of medication and did not refill her prescription. Denies fever, chill, abdominal pain, or chest pain. PMD: No Family Provider Past Medical History Reviewed: Historical Data, Nursing Documentation, Vital Signs Vital Signs: Last Vital Signs Temp 98 F 10/19/17 10:34 Pulse 89 10/19/17 12:21 Resp 16 10/19/17 12:21 BP 132/85 10/19/17 12:21 Pulse Ox 99 10/19/17 12:21 - Medical History PMH: Anxiety, Asthma, COPD, Depression, Diabetes, Diverticulitis, Gastritis, HTN , Pulmonary Embolism, Schizophrenia Denies: HIV, Chronic Kidney Disease - Surgical History Surgical History: Appendectomy, Cholecystectomy - Family History Family History: States: Unknown Family Hx - Immunization History Hx Tetanus Toxoid Vaccination: Yes Hx Influenza Vaccination: Yes Hx Pneumococcal Vaccination: Yes - Home Medications Home Medications: Ambulatory Orders Medication Instructions Recorded Docusate [Colace] 100 mg PO BID PRN #0 cap 04/21/16 Pantoprazole [Protonix EC Tab] 40 mg PO DAILY #0 ect 04/21/16 amLODIPine [Norvasc] 5 mg PO DAILY #0 tab 04/21/16 clonazePAM [Klonopin] 0.5 mg PO BID #0 tab 04/21/16 oxyCODONE/Acetaminophen [Percocet 1 tab PO Q4 PRN #0 tab 04/21/16 5/325 mg Tab] Lisinopril [Zestril] 10 mg PO DAILY #14 tab 10/19/17 amLODIPine [Norvasc] 5 mg PO DAILY #14 tab 10/19/17 - Allergies Allergies/Adverse Reactions: Allergies Allergy/AdvReac Type Severity Reaction Status Date / Time Penicillins Allergy RASH Verified 04/18/16 07:21 Review of Systems ROS Statement: Except As Marked, All Systems Reviewed And Found Negative Constitutional: Negative for: Fever, Chills Cardiovascular: Negative for: Chest Pain Gastrointestinal: Negative for: Abdominal Pain Neurological: Positive for: Headache Physical Exam - Reviewed Nursing Documentation Reviewed: Yes Vital Signs Reviewed: Yes - Physical Exam Appears: Positive for: Well, Non-toxic, No Acute Distress Head Exam: Positive for: ATRAUMATIC, NORMAL INSPECTION, NORMOCEPHALIC Skin: Positive for: Normal Color, Warm, Dry Eye Exam: Positive for: EOMI, Normal appearance, PERRL ENT: Positive for: Normal ENT Inspection Neck: Positive for: Normal, Painless ROM, Supple. Negative for: Decreased ROM Cardiovascular/Chest: Positive for: Regular Rate, Rhythm. Negative for: Murmur Respiratory: Positive for: Normal Breath Sounds. Negative for: Decreased Breath Sounds, Accessory Muscle Use, Respiratory Distress Gastrointestinal/Abdominal: Positive for: Normal Exam, Bowel Sounds, Soft. Negative for: Tenderness, Guarding, Rebound Back: Positive for: Normal Inspection. Negative for: L CVA Tenderness, R CVA Tenderness Extremity: Positive for: Normal ROM. Negative for: Tenderness, Pedal Edema, Deformity Neurologic/Psych: Positive for: Alert, Oriented (x3). Negative for: Motor/ Sensory Deficits - Laboratory Results Result Diagrams: 10/19/17 11:40 10/19/17 12:10 - ECG O2 Sat by Pulse Oximetry: 98 (RA) Pulse Ox Interpretation: Normal Medical Decision Making Medical Decision Making: Time: 1059 Initial Impression: controlled blood pressure from non compliance Initial Plan: --CMP --CBC w/ Differential --Glucose --Norvasc 5mg --Zestril 10mg --Reevaluation Scribe Attestation: Documented by Selena Nunez, acting as a scribe for Payal Carmona MD Provider Scribe Attestation: All medical record entries made by the Miriibshelley were at my direction and personally dictated by me. I have reviewed the chart and agree that the record accurately reflects my personal performance of the history, physical exam, medical decision making, and the department course for this patient. I have also personally directed, reviewed, and agree with the discharge instructions and disposition. 1.45p - patient's bp controlled after meds given. labs normal. will discharge. Disposition - Clinical Impression Clinical Impression: Hypertension - Patient ED Disposition Is Patient to be Admitted: No Doctor Will See Patient In The: Office Counseled Patient/Family Regarding: Diagnosis, Need For Followup, Rx Given - Disposition Referrals: Balta Bergman MD [Family Provider] - Disposition: Routine/Home Disposition Time: 13:35 Condition: IMPROVED Prescriptions: amLODIPine [Norvasc] 5 mg PO DAILY #14 tab Lisinopril [Zestril] 10 mg PO DAILY #14 tab Instructions: High Blood Pressure in Adults Forms: [facility] (Puerto Rican) - POA Present On Arrival: None
[2017-10-19 12:21] VITALS: RESP 16
[2017-10-19 12:25] LABS: BLOOD UREA NITROGEN 17 mg/dl (7-17); CALCIUM 9.3 mg/dL (8.4-10.2); GFR AFRICAN-AMERICAN > 60; GFR NON-AFRICAN AMERICAN > 60
[2017-10-19 14:31] VITALS: BP 129/79; PULSE 71; O2SAT 99
== END 2017-10-19 14:31 | disposition home or self-care (01) ==
LOC: H.ER 10:29
DX: I10 Essential (primary) hypertension (principal); E11.9 Type 2 diabetes mellitus without complications; F20.9 Schizophrenia, unspecified; F32.9 Major depressive disorder, single episode, unspecified; Z86.711 Personal history of pulmonary embolism; Z88.0 Allergy status to penicillin; Z91.14 Patient's other noncompliance with medication regimen; Z91.19 Patient's noncompliance with other medical treatment and regimen; J44.9 Chronic obstructive pulmonary disease, unspecified; F41.9 Anxiety disorder, unspecified

== ENCOUNTER 2018-01-26 09:02 | Emergency (ER) | payer MEDICARE, OTHER ==
[2018-01-26 09:08] VITALS: BP 136/82; PULSE 98; RESP 22; TEMP 97.6; O2SAT 96
[2018-01-26 09:09] VITALS: BMI 32.8
--- NOTE | 2018-01-26 10:00 | ED PDOC ---
HPI:Nausea, Vomiting, Diarrhea Time Seen by Provider: 01/26/18 09:27 Chief Complaint (Nursing): Abdominal Pain Chief Complaint (Provider): Nausea, vomiting, diarrhea History Per: Patient History/Exam Limitations: no limitations Onset/Duration Of Symptoms: Days (x2) Current Symptoms Are (Timing): Still Present Associated Symptoms: Chills, Nausea, Vomiting, Diarrhea. denies: Fever Additional Complaint(s): 72 year old female presents to the ED complaining of nausea, vomiting, and diarrhea for 2 days. Patient is unable to tolerate PO but able to tolerate small amounts of fluid. She had multiple episodes of watery diarrhea per day and multiple episodes of vomit with clear liquid and no blood and bile. Denies recent travel, changes in diet, and sick contacts. Patient states she is strict with her diet since learning she has diabetes and hasn't changed her diet since. Patient denies fever but has on and off feelings of chills. She indicates she takes all of her medications. PMD: Balta Morse Past Medical History Reviewed: Historical Data, Nursing Documentation, Vital Signs Vital Signs: Last Vital Signs Temp 97.6 F 01/26/18 09:07 Pulse 98 H 01/26/18 09:07 Resp 22 01/26/18 09:07 BP 136/82 01/26/18 09:07 Pulse Ox 96 01/26/18 09:07 - Medical History PMH: Anxiety, Asthma, COPD, Depression, Diabetes, Diverticulitis, Gastritis, HTN , Pulmonary Embolism, Schizophrenia Denies: HIV, Chronic Kidney Disease - Surgical History Surgical History: Appendectomy, Cholecystectomy - Family History Family History: States: Unknown Family Hx - Social History Current smoker - smoking cessation education provided: No Alcohol: None Drugs: Denies - Immunization History Hx Tetanus Toxoid Vaccination: Yes Hx Influenza Vaccination: Yes Hx Pneumococcal Vaccination: Yes - Home Medications Home Medications: Ambulatory Orders Medication Instructions Recorded Docusate [Colace] 100 mg PO BID PRN #0 cap 04/21/16 Pantoprazole [Protonix EC Tab] 40 mg PO DAILY #0 ect 04/21/16 amLODIPine [Norvasc] 5 mg PO DAILY #0 tab 04/21/16 clonazePAM [Klonopin] 0.5 mg PO BID #0 tab 04/21/16 oxyCODONE/Acetaminophen [Percocet 1 tab PO Q4 PRN #0 tab 04/21/16 5/325 mg Tab] Lisinopril [Zestril] 10 mg PO DAILY #14 tab 10/19/17 amLODIPine [Norvasc] 5 mg PO DAILY #14 tab 10/19/17 Nitrofurantoin Macrocrystals 100 mg PO BID #10 cap 01/26/18 [Macrobid] - Allergies Allergies/Adverse Reactions: Allergies Allergy/AdvReac Type Severity Reaction Status Date / Time Penicillins Allergy RASH Verified 01/26/18 09:19 Review of Systems ROS Statement: Except As Marked, All Systems Reviewed And Found Negative Constitutional: Positive for: Chills. Negative for: Fever Gastrointestinal: Positive for: Nausea, Vomiting, Diarrhea Physical Exam - Reviewed Nursing Documentation Reviewed: Yes Vital Signs Reviewed: Yes - Physical Exam Appears: Positive for: Well, No Acute Distress Head Exam: Positive for: ATRAUMATIC, NORMOCEPHALIC Skin: Positive for: Normal Color, Warm, Dry Eye Exam: Positive for: Normal appearance Neck: Positive for: Normal, Painless ROM Cardiovascular/Chest: Positive for: Regular Rate, Rhythm. Negative for: Murmur Respiratory: Positive for: Normal Breath Sounds. Negative for: Wheezing, Respiratory Distress Gastrointestinal/Abdominal: Positive for: Soft, Tenderness (left sided mild tenderness), Distended Extremity: Positive for: Normal ROM Neurologic/Psych: Positive for: Alert, Oriented. Negative for: Motor/Sensory Deficits - Laboratory Results Result Diagrams: 01/26/18 10:21 01/26/18 10:21 - ECG O2 Sat by Pulse Oximetry: 96 (RA) Pulse Ox Interpretation: Normal Medical Decision Making Medical Decision Making: Initial Impression: Nausea, vomiting, diarrhea. Initial Plan: --CMP --Lipase --CBC --Abdomen w/ chest X-ray --Sodium chloride 1000mL IV --Zofran 4mg IV --Urinalysis Workup for infectious process. Potential imaging if symptoms do not improve. Low suspicion for acute abdomen. 14:06 Chest X-ray showed no acute abnormalities. Patient given Zofran and IV fluids with improved nausea and abdominal pain. No episodes of vomiting and diarrhea while in the ED. Patient tolerated large tray of food. Repeat physical exam is benign with abdomen soft and nontender. Patient to follow up with PMD in 1 week and return parameters discussed with patient. Scribe Attestation: Documented by Olu Good acting as a scribe for Corrie Shelby MD. Provider Scribe Attestation: All medical record entries made by the Scribe were at my direction and personally dictated by me. I have reviewed the chart and agree that the record accurately reflects my personal performance of the history, physical exam, medical decision making, and the department course for this patient. I have also personally directed, reviewed, and agree with the discharge instructions and disposition. Disposition - Clinical Impression Clinical Impression: Abdominal pain, UTI (lower urinary tract infection) - Disposition Disposition: Routine/Home Disposition Time: 14:06 Condition: IMPROVED Additional Instructions: You were evaluated for vomiting, diarrhea, and abdominal pain today. Your urine showed a small infection in your bladder. You will be prescribed an antibiotic for this infection. You were given IV fluids and a medication for nausea (Zofran ). Following this treatment, you were able to eat food without vomiting and your abdominal pain improved. You will need to follow up with your primary doctor in one week. Return to the emergency department if you develop worsened symptoms such as vomiting, abdominal pain, fever, or other new symptoms. Prescriptions: Nitrofurantoin Macrocrystals [Macrobid] 100 mg PO BID #10 cap Instructions: Urinary Tract Infections in Adults, Urinary Tract Infection, Adult (DC), Nausea and Vomiting, Adult (DC) Forms: [employer] (Grenadian) Print Language: UZBEK
[2018-01-26] MEDS: Sodium Chloride 0.9% 1,000 ML IV SCH ×2 (10:16→11:13)
[2018-01-26 10:27] LABS: BASO # 0.1 K/uL (0.0-0.2); BASO % 1.2 % (0.0-2.0); EOS # 0.1 K/uL (0.0-0.7); EOS % 1.1 % (0.0-4.0); HEMOGLOBIN 13.7 g/dL (12.0-16.0); LYMPH # 2.7 K/uL (1.0-4.3); MEAN CELL VOLUME 90.1 fl (81.0-99.0); MEAN CORPUSCULAR HEMOGLOBIN 29.9 pg (27.0-31.0); MEAN CORPUSCULAR HGB CONC 33.2 g/dL (33.0-37.0); MEAN PLATELET VOLUME 8.1 fl (7.2-11.7); MONO % 9.7 % (0.0-10.0); NEUT # 6.4 K/uL (1.8-7.0); RBC 4.6 Mil/uL (3.80-5.20); RED CELL DISTRIBUTION WIDTH 14.4 % (11.5-14.5); WHITE BLOOD COUNT 10.3 K/uL (4.8-10.8)
[2018-01-26 10:28] LABS: SQUAMOUS EPITHIAL < 1 /hpf (0-5); URINE BILIRUBIN NEGATIVE (NEGATIVE); URINE BLOOD NEGATIVE (NEGATIVE); URINE CLARITY CLEAR (Clear); URINE GLUCOSE (UA) NEG (Normal); URINE LEUKOCYTE ESTERASE SMALL Leu/uL (Negative); URINE PROTEIN NEGATIVE (NEGATIVE); URINE UROBILINOGEN 0.2-1.0 mg/dL (0.2-1.0)
[2018-01-26 10:42] LABS: URINE COLOR YELLOW (YELLOW)
[2018-01-26 11:08] LABS: ALB/GLOB RATIO 1.4 (1.0-2.1); ALBUMIN 4.6 g/dL (3.5-5.0); ALT/SGPT 36 U/L (9-52); AST/SGOT 29 U/L (14-36); BLOOD UREA NITROGEN 16 mg/dl (7-17); CALCIUM 9.6 mg/dL (8.4-10.2); GFR NON-AFRICAN AMERICAN > 60; LIPASE 118 U/L (23-300)
--- NOTE | 2018-01-26 17:58 | RAD ---
Date of service: 01/26/2018. HISTORY: Abdominal pain with vomiting and diarrhea. COMPARISON: No prior. . FINDINGS: CHEST /ABDOMEN: Heart size normal. . There appears to be some minimal bibasilar atelectasis. No free intraperitoneal air seen under the diaphragmatic surfaces. No evidence of acute mechanical bowel obstruction. Metallic clips right upper quadrant of the abdomen consistent prior cholecystectomy BONES: Left shoulder replacement. ACDF changes lower cervical/ upper thoracic region. Mild multilevel degenerative spondylosis of the thoracic and lumbar spine. OTHER FINDINGS: In situ IVC filter. IMPRESSION: Suspect mild bibasilar atelectasis. No evidence of acute mechanical bowel obstruction.
--- NOTE | 2018-01-27 12:13 | CARD ---
APPROVED REPORT Date of service: 01/26/2018 <Conclusion> Normal sinus rhythm Normal ECG
== END 2018-01-26 14:59 | disposition home or self-care (01) ==
LOC: H.ER 09:02
DX: R10.9 Unspecified abdominal pain (principal); N39.0 Urinary tract infection, site not specified; E11.9 Type 2 diabetes mellitus without complications; Z86.59 Personal history of other mental and behavioral disorders; I10 Essential (primary) hypertension; J44.9 Chronic obstructive pulmonary disease, unspecified; Z86.711 Personal history of pulmonary embolism; Z88.0 Allergy status to penicillin
CPT/HCPCS: 74022; 80053; 81003; 83690; 85025; 93005; 96360; 96374; 99283; J2405; J7030